=== PATIENT | male | born 1950 | race Caucasian/White ===

== ENCOUNTER → 2016-10-13 | Outpatient (CLI) | payer OTHER ==
[~2016-10-13] MED LIST: ASPIRIN PO; ASPIRIN325 M1 PO; BENICAR HCT 20-1 TA1 PO; KLONOPIN PO; LIPITOR PO; LIPITOR20 MG PO; LOPRESSOR PO; NEXIUM PO; NITROGLYGERIN0.4 MG SL; PHENERGAN PO; PLAVIX PO; VICODIN PO; XANAX0.5 MG PO
--- NOTE | ~2016-10-13 | US38 ---
[facility] A Service [facility] RADIOLOGY TEXT RESULTS PATIENT: KARMEN GRAYSON LOCATION: CNIV : 52 UNIT #: [id number] AGE: [address]: Aries Lloyd MD SEX: M ORDER DR: [id number] [facility] [address]. [place], [place] [address] [id number] O MR#: [id number] Acc #: [id number] NAME: KARMEN GRAYSON : 1950 SEX: M STUDY DATE/TIME: 10/13/2016 9:26 UNIT: CNIV ROOM: STUDY DESCRIPTION: US Carotid W/Doppler Unilatera Attending Physician: Aries Lloyd M.D. Ordering Physician: Aries Lloyd M.D. Primary Care Physician: Valentin Mays M.D. MEDICAL IMAGING REPORT This report is preliminary unless electronic signature is present EXAM Left carotid duplex HISTORY Left carotid endarterectomy March 2016 FINDINGS Duplex imaging of the left carotid artery was performed. The left common carotid artery is patent with mild plaque in the mid common carotid artery. Internal and external carotid arteries are widely patent with no plaque and normal appearance. Peak velocity in the left common carotid is 54, internal is 91, proximally 105 mid portion and 116 distally, external is 160 cm/second. Left ICA:CCA is 2.2. Antegrade flow is seen in the left vertebral artery. IMPRESSION Normal appearance of the left internal and external carotid arteries post endarterectomy. Antegrade flow is seen in the left vertebral artery. Dictated by... Aries Lloyd M.D. THIS IS AN ELECTRONICALLY VERIFIED REPORT Aries Lloyd M.D. at 10/14/2016 9:44 AM SA/to TD: 10/13/2016 17:27 JOB #: [id number] [facility] A Service [facility] RADIOLOGY TEXT RESULTS PATIENT: KARMEN GRAYSON LOCATION: CNIV : 52 UNIT #: [id number] AGE: [address]: Aries Lloyd MD SEX: M ORDER DR: MEDICAL IMAGING REPORT Page 1 of 1 COPY
== END | disposition home or self-care (01) ==
LOC: CNIV 08:42
DX: I65.22 Occlusion and stenosis of left carotid artery (principal); Z98.890 Other specified postprocedural states
CPT/HCPCS: 93882